=== PATIENT | female | born 1955 | race Caucasian/White ===

== ENCOUNTER → 2016-09-02 | Emergency (ER) | payer OTHER ==
[~2016-09-02] MED LIST: KETOROLAC TROMETHAMINE 30 MG/1 ML VIAL IVPUSH ONE; KETOROLAC TROMETHAMINE 30 MG/1 ML VIAL ONE; SODIUM CHLORIDE 1,000 ML IV ONE
[2016-09-02 15:11] VITALS: BMI 36.8
--- NOTE | 2016-09-02 15:59 | PDOC ---
History of Present Illness - History of Present Illness Initial Comments: 09/02/16 16:40 The patient is a 60 year old female, with a significant past medical history of diverticulitis and colon polyps, who presents to the emergency department with right upper quadrant pain since 9pm last night. She reports developing her pain a couple hours after eating dinner of pork chops. She describes the pain as constant, sharp and localized under her right ribcage. She states she woke up from her sleep at 3am and took one percocet for pain with some relief. The patient was seen in the ED about 18 days ago where she had a negative CT scan for LLQ pain. No prior history of gall stones or RUQ pain. She denies chest pain, shortness of breath, headache and dizziness. She denies fever, chills, nausea, vomit, diarrhea and constipation. She denies dysuria, frequency, urgency and hematuria. Allergies: meperidine, demerol Past surgical history: colon resection (2008), diverticulitis w/ abscess (2015) Social history: former smoker PCP - Dr. Tamar Fernandez <Linda Thurston - Last Filed: 09/02/16 18:01> <Jose Reed - Last Filed: 09/02/16 19:14> - General Chief Complaint: Pain Stated Complaint: RT SIDE ABD PAIN Time Seen by Provider: 09/02/16 15:33 Past History <Linda Thurston - Last Filed: 09/02/16 18:01> - Past Medical History GI Disorders: Yes (DIVERTICULITIS, COLON POLYPS) - Surgical History Abdominal Surgery: Yes (COLON RESECTION,COLON PERFORATION) - Psycho/Social/Smoking Cessation Hx Anxiety: No Suicidal Ideation: No Smoking History: Current every day smoker Have you smoked in the past 12 months: Yes Number of Cigarettes Smoked Daily: 10 Information on smoking cessation initiated: Yes 'Breaking Loose' booklet given: 09/02/16 Hx Alcohol Use: No Drug/Substance Use Hx: No Substance Use Type: None <Jose Reed - Last Filed: 09/02/16 19:14> - Past Medical History Allergies/Adverse Reactions: Allergies Allergy/AdvReac Type Severity Reaction Status Date / Time meperidine HCl [From Demerol] Allergy Vomiting Verified 09/02/16 15:08 IV DYE Allergy Hives Uncoded 09/02/16 15:08 Home Medications: Ambulatory Orders Meloxicam [Mobic] 15 mg PO DAILY PRN 04/23/16 Oxycodone HCl/Acetaminophen [Percocet 5-325 mg Tablet] 1 tab PO Q6H PRN #12 tablet MDD 4 tabs 08/14/16 Abd/GI Specific PMHX - Complaint Specific PMHX Diverticulitis: Yes <DerekJose - Last Filed: 09/02/16 19:14> Review of Systems - Review of Systems Able to Perform ROS?: Yes Comments:: 09/02/16 18:01 CONSTITUTIONAL: No reported: Fever, Chills, Diaphoresis, Generalized Weakness, Malaise, Loss of Appetite HEENT: No reported: Rhinorrhea, Nasal Congestion, Throat Pain, Throat Swelling, Difficulty Swallowing, Mouth Swelling, Ear Pain, Eye Pain, Visual Changes CARDIOVASCULAR: No reported: Chest Pain, Syncope, Palpitations, Irregular Heart Rate, Lightheadedness, Peripheral Edema RESPIRATORY: No reported: Cough, Shortness of Breath, SOB with Exertion, Orthopnea, Wheezing , Stridor, Hemoptysis GASTROINTESTINAL: (+) right upper quadrant pain. No reported: Abdominal Distension, Nausea, Vomiting, Diarrhea, Constipation, Melena, Hematochezia GENITOURINARY: No reported: Dysuria, Frequency, Urgency, Hesitancy, Flank Pain, Genital Pain MUSCULOSKELETAL: No reported: Myalgia, Arthralgia, Joint Swelling, Back pain, Neck Pain SKIN: No reported: Rash, Itching, Pallor HEMEATOLOGIC/IMMUNOLOGIC: No reported: Easy Bleeding, Easy Bruising, Lymphadenopathy, Frequent infections ENDOCRINE: No reported: Unexplained Weight Gain, Unexplained Weight Loss, Heat Intolerance , Cold Intolerance NEUROLOGIC: No reported: Headache, Focal Weakness, Paresthesias, Vertigo, Lightheadedness, Unsteady Gait, Seizure, Mental Status Changes, Incontinence PSYCHIATRIC: No reported: Anxiety, Depression <Linda Thurston - Last Filed: 09/02/16 18:01> *Physical Exam - Vital Signs Last Vital Signs Temp Pulse Resp BP Pulse Ox 97.7 F 72 18 118/71 100 09/02/16 15:09 09/02/16 15:09 09/02/16 15:09 09/02/16 15:09 09/02/16 15:09 - Physical Exam Comments: 09/02/16 18:02 GENERAL: The patient is awake, alert, and fully oriented, Nontoxic - in no acute distress. HEAD: Normocephalic, atraumatic. EYES: extraocular movements intact, sclera anicteric, conjunctiva clear. ENT: Normal voice, Moist mucous membranes. NECK: Normal range of motion, supple LUNGS: Breath sounds equal, clear to auscultation bilaterally. No wheezes, no rhonchi, no rales. HEART: Regular rate and rhythm, without murmur, rub or gallop. ABDOMEN: (+) Right upper quadrant tenderness. Negative day's sign. Soft, normoactive bowel sounds. No guarding, no rebound.No CVA tenderness EXTREMITIES: Normal range of motion, no edema. No clubbing or cyanosis. No cords, erythema, or tenderness. NEUROLOGICAL: No facial assymetry, Normal speech, PSYCH: Normal mood, normal affect. SKIN: Warm, Dry, normal turgor, <Linda Thurston - Last Filed: 09/02/16 18:01> - Vital Signs Last Vital Signs Temp Pulse Resp BP Pulse Ox 97.7 F 72 18 118/71 100 09/02/16 15:09 09/02/16 15:09 09/02/16 15:09 09/02/16 15:09 09/02/16 15:09 <Jose Reed - Last Filed: 09/02/16 19:14> Heart Score/ECG Review - ECG Impressions Comment:: 09/02/16 19:14 Twelve-lead EKG was performed and reviewed by me. There is normal sinus rhythm with a normal rate. Rate of 60 The axis is normal. The intervals are normal. There is normal R wave progression There are no ST or T wave abnormalities. Impression: Normal twelve-lead EKG <Jose Reed - Last Filed: 09/02/16 19:14> ED Treatment Course - LABORATORY CBC & Chemistry Diagram: 09/02/16 16:00 09/02/16 16:00 - ADDITIONAL ORDERS Additional order review: Laboratory Results 09/02/16 09/02/16 16:00 16:00 Sodium 143 Potassium 4.1 Chloride 107 Carbon Dioxide 27 Anion Gap 9 BUN 14 Creatinine 0.7 Creat Clearance w eGFR > 60 Random Glucose 98 Calcium 9.5 Total Bilirubin 0.4 Direct Bilirubin < 0.1 AST 14 L ALT 20 Alkaline Phosphatase 84 Total Protein 7.0 Albumin 3.8 Lipase 163 Urine Color Ltyellow Urine Appearance Clear Urine pH 6.0 Ur Specific [place] 1.008 Urine Protein Negative Urine Glucose (UA) Negative Urine Ketones Negative Urine Blood 2+ H Urine Nitrite Negative Urine Bilirubin Negative Urine Urobilinogen Negative Ur Leukocyte Esterase Negative Urine RBC 4 Urine WBC <1 Ur Epithelial Cells Rare Urine Mucus Rare 09/02/16 16:00 RBC 4.63 MCV 89.6 MCHC 32.4 RDW 14.6 MPV 7.7 Neutrophils % 59.1 Lymphocytes % 28.3 Monocytes % 7.8 Eosinophils % 3.3 Basophils % 1.5 - RADIOLOGY Radiograph Interpretation: 09/02/16 17:44 Ultrasound was read at this time Impression: No sonographic abnormalities are seen as discussed. - Medications Given in the ED: ED Medications Discontinued Medications Generic Name Dose Route Start Last Admin Trade Name Freq PRN Reason Stop Dose Admin Sodium Chloride 1,000 mls @ 1,000 mls/hr 09/02/16 16:05 09/02/16 16:10 Normal Saline - IV 09/02/16 17:04 1,000 mls/hr .Q1H ONE Administration Ketorolac Tromethamine 30 mg 09/02/16 16:05 09/02/16 16:10 Toradol Injection - IVPUSH 09/02/16 16:06 30 mg ONCE ONE Administration <Linda Thurston - Last Filed: 09/02/16 18:01> - LABORATORY CBC & Chemistry Diagram: 09/02/16 16:00 09/02/16 16:00 <Jose Reed - Last Filed: 09/02/16 19:14> Medical Decision Making - Medical Decision Making 09/02/16 16:25 60y F presents with RUQ pain after eating, associated nausae w/o vomiting, fever /chills on exam pt with mild RUQ tenderness w negative murphies sign ?gall stones will ck labs, us will ck UA to r/o will give toradol and fluids will reassess A portion of this note was documented by scribe services under my direction. I have reviewed the details of the note, within reason, and agree with the documentation with the following case summary and management plan written by me 09/02/16 18:08 pts labs and US reviewed negative upon further evaluation of the pt, she notes the pain is worse on the R flank,/ rib area - reproducible on palpation and with rotation motion of her torsoe against resistance - abd resassessed and tenderness is more over her ribs and not in her abdomen. suspect muscle strain deu to recent hevy liftin (she helepd her friend move on ) will recommend supportive measures return precautions were discussed. I discussed the physical exam findings, ancillary test results and final diagnoses with the patient. I answered all of the patient's questions. The patient was satisfied with the care received and felt comfortable with the discharge plan and treatment plan. The patient will call their primary care physician within 24 hours to arrange follow-up and will return to the Emergency Department with any new, persistent or worsening symptoms. <Jose Reed - Last Filed: 09/02/16 19:14> *DC/Admit/Observation/Transfer - Attestations Scribe Attestion: 09/02/16 18:02 Documentation prepared by Linda Thurston, acting as medical billing supervisor for Jose Reed MD, MD <Linda Thurston - Last Filed: 09/02/16 18:01> - Discharge Dispostion Admit: No <Jose Reed - Last Filed: 09/02/16 19:14> Diagnosis at time of Disposition: Strain of muscle of torso Qualifiers: Encounter type: initial encounter Qualified Code(s): S29.019A - Strain of muscle and tendon of unspecified wall of thorax, initial encounter - Discharge Dispostion Disposition: HOME Condition at time of disposition: Improved - Referrals Referrals: Tamar Fernandez MD [Primary Care Provider] - - Patient Instructions Printed Discharge Instructions: DI for Muscle Strain Additional Instructions: Return to the emergency department immediately with ANY new, persistent or worsening symptoms including any worsening symptoms, fevers, chills, vomiting or other concerns. Take Tylenol as needed for pain. Use a heating pad for any discomfort or pain. You MUST call and follow up with your doctor tomorrow for further evaluation of your symptoms. Results were discussed with you. Please make sure your doctor reviews the results of your emergency evaluation.
[2016-09-02 16:14] LABS: BASOPHIL 1.5 % (0-2.0); EOSINOPHIL 3.3 % (0-4.5); MCH 29.1 pg (25.7-33.7); MCHC 32.4 g/dl (32.0-36.0); MEAN CELL VOLUME 89.6 fl (80-96); MEAN PLT VOLUME 7.7 fl (7.5-11.1); NEUTROPHILS 59.1 % (42.8-82.8); PLATELET COUNT 351 K/MM3 (134-434); RDW 14.6 % (11.6-15.6); WHITE BLOOD COUNT 8.6 K/mm3 (4.0-10.0)
[2016-09-02 16:15] LABS: URINE APPEARANCE CLEAR; URINE BILIRUBIN NEGATIVE (NEGATIVE); URINE COLOR LTYELLOW; URINE GLUCOSE (UA) NEGATIVE (NEGATIVE); URINE KETONE NEGATIVE (NEGATIVE); URINE LEUK ESTERASE NEGATIVE (NEGATIVE); URINE NITRITE NEGATIVE (NEGATIVE); URINE PROTEIN NEGATIVE (NEGATIVE); URINE UROBILINOGEN NEGATIVE E.U./dl (0.2-1.0)
[2016-09-02 16:17] LABS: URINE BLOOD 2+ (NEGATIVE)
[2016-09-02 16:36] LABS: URINE MUCUS RARE; URINE RBC 4 /hpf (0-3); URINE WBC <1 /hpf (3-5)
[2016-09-02 16:40] LABS: ALBUMIN 3.8 g/dl (3.4-5.0); ANION GAP 9 (8-16); BILIRUBIN,TOTAL 0.4 mg/dL (0.2-1.0); CALCIUM 9.5 mg/dL (8.5-10.1); CO2 27 mmol/L (21-32); CREATININE 0.7 mg/dL (0.55-1.02); GLUCOSE,RANDOM 98 mg/dL (74-106); SGOT/AST 14 U/L (15-37)
[2016-09-02 16:47] LABS: ALK PHOS 84 U/L (45-117); SGPT/ALT 20 U/L (12-78)
[2016-09-02 17:01] LABS: BILIRUBIN,DIRECT < 0.1 mg/dL (0.0-0.2)
[2016-09-02 18:18] VITALS: BP 124/70; PULSE 87; TEMP 98.2
--- NOTE | 2016-09-03 09:24 | EKG ---
Test Reason : Blood Pressure : / mmHG Vent. Rate : 060 BPM Atrial Rate : 060 BPM P-R Int : 184 ms QRS Dur : 080 ms QT Int : 416 ms P-R-T Axes : 044 011 043 degrees QTc Int : 416 ms NORMAL SINUS RHYTHM NORMAL ECG WHEN COMPARED WITH ECG OF 14-FEB-2016 02:49, NO SIGNIFICANT CHANGE WAS FOUND Confirmed by NATALIYA ANAND MD ([id number]) on 09/03/2016 9:24:18 AM Referred By: Confirmed By:NATALIYA ANAND MD
== END | disposition home or self-care (01) ==
LOC: JER 15:06
PROC: 3E0333Z Introduction of Anti-inflammatory into Peripheral Vein, Percutaneous Approach (ICD-10-PCS; principal; 2016-09-02)
DX: S29.011A Strain of muscle and tendon of front wall of thorax, initial encounter (principal); X50.0XXA Overexertion from strenuous movement or load, initial encounter; Y93.E6 Activity, residential relocation; Y92.098 Other place in other non-institutional residence as the place of occurrence of the external cause
CPT/HCPCS: 36415; 76705-TC; 80053; 81003; 81015; 82248; 83690; 85025; 93005; 93010; 96374; 99283-25

== ENCOUNTER 2018-02-22 21:03 | Emergency (ER) | payer OTHER ==
[2018-02-22 21:14] VITALS: BP 115/68; PULSE 99; TEMP 98.4; BMI 34.8
--- NOTE | 2018-02-22 21:55 | PDOC ---
History of Present Illness - General Chief Complaint: Rash Stated Complaint: RASH Time Seen by Provider: 02/22/18 21:45 History Source: Patient Exam Limitations: No Limitations - History of Present Illness Initial Comments: 02/22/18 21:53 62 yr female with sores in mouth throat and noticed on arms and legs today no fever. Severity: Yes: mild Location: reports: extremities Past History - Past Medical History Allergies/Adverse Reactions: Allergies Allergy/AdvReac Type Severity Reaction Status Date / Time meperidine HCl [From Demerol] Allergy Vomiting Verified 02/22/18 21:14 IV DYE Allergy Hives Uncoded 02/22/18 21:14 Home Medications: Ambulatory Orders NK [No Known Home Medication] 02/22/18 GI Disorders: Yes (DIVERTICULITIS, COLON POLYPS) - Surgical History Abdominal Surgery: Yes (COLON RESECTION,COLON PERFORATION) - Suicide/Smoking/Psychosocial Hx Smoking History: Never smoked Have you smoked in the past 12 months: No Number of Cigarettes Smoked Daily: 10 Information on smoking cessation initiated: No 'Breaking Loose' booklet given: 09/02/16 Hx Alcohol Use: No Drug/Substance Use Hx: No Substance Use Type: None *Physical Exam - Vital Signs Last Vital Signs Temp Pulse Resp BP Pulse Ox 98.4 F 99 H 16 115/68 100 02/22/18 21:12 02/22/18 21:12 02/22/18 21:12 02/22/18 21:12 02/22/18 21:12 - Physical Exam General Appearance: Yes: Nourished, Appropriately Dressed HEENT: positive: EOMI, ALESSIA, TMs Normal, Pharyngeal Erythema, Other (white ulcers to back of throat and inside the lower lip ) Neck: negative: Tender Respiratory/Chest: positive: Lungs Clear, Normal Breath Sounds Cardiovascular: positive: Regular Rhythm, Regular Rate Extremity: positive: Normal Capillary Refill, Normal Inspection, Normal Range of Motion Integumentary: positive: Rash (arms and back of legs with small papules red wiith white centers) Neurologic: positive: Fully Oriented, Alert, Normal Mood/Affect, Normal Response , Motor Strength 5/5 Medical Decision Making - Medical Decision Making 02/23/18 11:42 cc: rash to mouth arms and legs, hands no fever no diff swallowing exam consistent with hand foot mouth pt has papules red with white center to arms legs hands and around mouth as well as inside the mouth dc plan discussed pt understands the plan of care *DC/Admit/Observation/Transfer Diagnosis at time of Disposition: Hand, foot and mouth disease - Discharge Dispostion Disposition: HOME Condition at time of disposition: Good - Referrals - Patient Instructions Printed Discharge Instructions: Hand, Foot, and Mouth Disease Additional Instructions: gargle with warm salt water 4-5 times a day listerine mouthwash gargles twice a day sore throat spray motrin or tylenol for pain follow with your doctor in 3-4 days for follow up - Post Discharge Activity
== END 2018-02-22 22:33 | disposition home or self-care (01) ==
LOC: JERFT 21:03
DX: B08.4 Enteroviral vesicular stomatitis with exanthem (principal); Z86.010 Personal history of colon polyps
CPT/HCPCS: 99281-25

== ENCOUNTER 2021-08-04 17:27 | Emergency (ER) | payer OTHER ==
[2021-08-04 17:40] VITALS: BP 148/96; PULSE 72; TEMP 98.7; BMI 35.6
== END 2021-08-04 20:43 | disposition home or self-care (01) ==
LOC: JER 17:27
DX: S80.01XA Contusion of right knee, initial encounter (principal); W10.1XXA Fall (on)(from) sidewalk curb, initial encounter
CPT/HCPCS: 73110-TC-RT-FY; 73130-TC-RT-FY; 73564-TC-RT-FY; 99284-25